=== PATIENT | female | born 1990 | race American Indian/Alaskan Native ===

== ENCOUNTER 2017-01-09 17:03 | Emergency (ER) | payer OTHER ==
[2017-01-09 17:03] VITALS: BMI 25.7
[2017-01-09 17:08] VITALS: BP 97/64
[2017-01-09 17:17] VITALS: PULSE 100; RESP 26; TEMP 98.4; O2SAT 99
[2017-01-09] MEDS ORDERED: Sodium Chloride 0.9% 1,000 ML IV ONE (17:41)
[2017-01-09 17:42] LABS: BASO % 0.6 % (0.0-2.0); EOS # 0.1 K/uL (0.0-0.7); HEMATOCRIT 37.6 % (34.0-47.0); LYMPH # 2.5 K/uL (1.0-4.3); LYMPH % 33.7 % (20.0-40.0); MEAN CELL VOLUME 80.5 fL (81.0-99.0); MEAN CORPUSCULAR HEMOGLOBIN 26.6 pg (27.0-31.0); MEAN CORPUSCULAR HGB CONC 33.1 g/dL (33.0-37.0); MEAN PLATELET VOLUME 9.4 fL (7.2-11.7); MONO # 0.6 K/uL (0.0-0.8); MONO % 8.6 % (0.0-10.0); NRBC % 0.1 % (0.0-2.0); RED CELL DISTRIBUTION WIDTH 12.6 % (11.5-14.5); WHITE BLOOD COUNT 7.4 K/uL (4.8-10.8)
[2017-01-09] MEDS ORDERED: Morphine 4 MG/ML VIAL ONE (17:51)
[2017-01-09] MEDS ORDERED: Sodium Chloride 0.9% 1,000 ML ONE (17:51)
[2017-01-09 17:56] LABS: CHLORIDE 102 mmol/L (98-107)
[2017-01-09 17:57] LABS: POTASSIUM 4.2 mmol/L (3.6-5.2); SODIUM 137 mmol/L (132-148)
[2017-01-09 17:59] LABS: ALB/GLOB RATIO 1.1 (1.0-2.1); ALKALINE PHOSPHATASE 38 U/L (38-126); ALT/SGPT 12 U/L (9-52); AST/SGOT 31 U/L (14-36); BILIRUBIN,TOTAL 0.5 mg/dL (0.2-1.3); BLOOD UREA NITROGEN 5 mg/dL (7-17); CARBON DIOXIDE 16 mmol/L (22-30); GFR AFRICAN-AMERICAN > 60; GLUCOSE,RANDOM 102 mg/dL (65-105); TOTAL PROTEIN 7.6 g/dL (6.3-8.3)
[2017-01-09 18:00] LABS: CALCIUM 9.3 mg/dl (8.6-10.4)
[2017-01-09 18:09] LABS: RBC URINE < 1 /hpf (0-3); TRANSITIONAL EPITHIAL < 1 /hpf (0-3); URINE BACTERIA RARE (<OCC); URINE BILIRUBIN NEGATIVE (NEGATIVE); URINE BLOOD NEGATIVE (NEGATIVE); URINE COLOR Yellow (YELLOW); URINE GLUCOSE (UA) NORMAL (Normal); URINE KETONE NEGATIVE (NEGATIVE); URINE PROTEIN NEGATIVE (NEGATIVE); URINE UROBILINOGEN NORMAL mg/dL (0.2-1.0); WBC URINE 3 /hpf (0-5)
[2017-01-09 18:10] LABS: URINE LEUKOCYTE ESTERASE NEGATIVE Leu/uL (Negative)
--- NOTE | 2017-01-09 18:12 | C.PDOC ---
History Of Present Illness 26 y/o female presents to the emergency department complaining of lower abdominal pain x 2 hours. Patient reports she is approximately 8 weeks . She notes normal pelvic ultrasound December 27, 2016 showing 6 weeks 6 days with positive heart tone. Patient denies any vaginal discharge, vaginal bleeding, urinary symptoms, vomiting, chest pain, shortness of breath, or other complaints. Time Seen by Provider: 01/09/17 17:34 Chief Complaint (Nursing): Abdominal Pain History Per: Patient History/Exam Limitations: no limitations Onset/Duration Of Symptoms: Hrs (2), Persistent Current Symptoms Are (Timing): Still Present Location Of Pain/Discomfort: RLQ, LLQ, Suprapubic Radiation Of Pain To:: None Recent travel outside of the [place]: No Past Medical History Reviewed: Historical Data, Nursing Documentation, Vital Signs Vital Signs: Last Vital Signs Temp 98.4 F 01/09/17 17:10 Pulse 100 H 01/09/17 17:10 Resp 26 H 01/09/17 17:10 BP 97/64 L 01/09/17 17:10 Pulse Ox 99 01/09/17 18:14 - Medical History PMH: No Chronic Diseases Surgical History: Appendectomy Family History: States: Unknown Family Hx - Social History Hx Tobacco Use: No Hx Alcohol Use: No Hx Substance Use: No - Immunization History Hx Tetanus Toxoid Vaccination: No Hx Influenza Vaccination: No Hx Pneumococcal Vaccination: No Review Of Systems Except As Marked, All Systems Reviewed And Found Negative. Cardiovascular: Negative for: Chest Pain Respiratory: Negative for: Shortness of Breath Gastrointestinal: Positive for: Abdominal Pain (lower). Negative for: Vomiting Genitourinary: Negative for: Dysuria, Hematuria, Vaginal Discharge, Vaginal Bleeding Physical Exam - Physical Exam Appears: Non-toxic, Other (in moderate distress) Skin: Normal Color, Warm, Dry Head: Atraumatic, Normacephalic Eye(s): bilateral: Normal Inspection, PERRL Oral Mucosa: Moist Neck: Normal ROM, Supple Chest: Symmetrical Cardiovascular: Rhythm Regular Respiratory: Normal Breath Sounds, No Rales, No Rhonchi, No Wheezing Gastrointestinal/Abdominal: Soft, Tenderness (lower abdomen), No Guarding, No Rebound Back: Normal Inspection, No CVA Tenderness Extremity: Normal ROM, No Swelling Neurological/Psych: Oriented x3, Normal Speech, Normal Cognition ED Course And Treatment - Laboratory Results Result Diagrams: 01/09/17 17:33 01/09/17 17:33 Lab Interpretation: Normal (normal LFT's, Quant HCG 189,650) Urine POC: Positive O2 Sat by Pulse Oximetry: 99 (ra) Pulse Ox Interpretation: Normal Reevaluation Time: 19:20 Reassessment Condition: Improved (pain free. no epigastric discomfort, no + Butterfield's sign, + alternating dull and tympanic to precussion through the colonic trajectory.) Medical Decision Making Medical Decision Making: Plan: * Ultrasound * Blood Work * Urinalysis * U-Preg * Morphine IVP, IV Fluids normal IUP, LOW susp of GB dz, prob constipation. Disposition Doctor Will See Patient In The: Office Counseled Patient/Family Regarding: Studies Performed, Diagnosis - Disposition Disposition: HOME/ ROUTINE Disposition Time: 19:21 Condition: GOOD - Clinical Impression Clinical Impression: Abdominal pain, - Scribe Statement The provider has reviewed the documentation as recorded by the Scribe (Joseline Lorenzo) Provider Attestation: All medical record entries made by the Scribe were at my direction and personally dictated by me. I have reviewed the chart and agree that the record accurately reflects my personal performance of the history, physical exam, medical decision making, and the department course for this patient. I have also personally directed, reviewed, and agree with the discharge instructions and disposition.
--- NOTE | 2017-01-10 08:13 | US ---
Pelvic ultrasound History: . Lower abdominal pain. Comparison: None available. Technique: Real-time sonography was performed through the pelvis utilizing transabdominal technique. Findings: Uterus: 9.8 x 6.1 x 7.6 centimeters. Retroverted. Cervix measures 2.5 centimeters. Intrauterine gestational sac measuring 4.7 centimeters corresponding to a gestational age of 10 weeks and 3 days. pole with crown-rump length measuring 3.8 centimeters corresponding to a gestational age of 10 weeks and 5 days. heart rate of 146 beats per minute. No free fluid in the pelvic cul-de-sac. Right ovary: 2.7 x 1.9 x 2.1 centimeters. Normal flow. Left ovary: 2.7 x 2.2 x 2.5 centimeters. Normal flow. Impression: Intrauterine corresponding to a gestational age of approximately 10 weeks and 5 days by crown-rump length of 3.8 centimeters. heart rate of 146 beats per minute. Limited 1st trimester ultrasound for viability purposes only. Continued interval followup with serial ultrasound, serial HCG levels, and gynecological consultation would be helpful if clinically indicated.
== END 2017-01-09 19:30 | disposition home or self-care (01) ==
LOC: C.ER 17:03
DX: O26.891 Other specified pregnancy related conditions, first trimester (principal); R10.30 Lower abdominal pain, unspecified; Z3A.10 10 weeks gestation of pregnancy
CPT/HCPCS: 76801; 80053; 81001; 83690; 84702; 84703; 85025; 86850; 86900; 96361; 96374; 99284; J2270; J7040